=== PATIENT | female | born 1970 | race Two or more races ===

== ENCOUNTER 2024-03-11 14:30 | Outpatient (RCR) | payer MEDICAID, SELFPAY ==
--- NOTE | 2024-02-27 13:10 | PTNOTE_ITS ---
PT OP Initial Eval Patient Information Outpatient Physical Therapy Treatment Date: 02/27/24 Visit Reasons: Left knee fracture Medical Diagnosis: s82.832a Treatment Dx #1: Left Knee Pain Start of Care: 02/27/24 Date of Onset: 12/06/23 Smoking Status Smoking Status: Never smoker Initial Assessment Subjective: Pt is a 53 y/o female reports o left knee fracture when she fell at work. Pt's CT scan confirmed fibula head fracture. Pt was in a long cast for several weeks. Pt still has pain (6/10) with activities. Pt has limitation with walking, standing, chores, self care, balance, and performing work duties. Objective: Left Knee AROM: 0 deg to 130 deg with pain Left Knee MMTs: grossly 3+/5 Left Hip MMTs: grossly 3+/5 SLS: NT Assessment: Pt demonstrate left knee pain and weakness s/p fracture leading to difficulty with ADLs. Pt will benefit from physical therapy to increase mobility, strength, and work on ambulation. Short Term and Custodial Goals 1) Increase left knee AROM WNL in 6 wks to be able to perform squatting activities 2) Increase left knee MMTs grossly to 4/5 in 6 wks to be able to perform stairs and steps 3) Increase left hip MMTs grossly to 4-/5 in 6 wks to be able to performs work duties 4) Increase SLS to 15 sec in 6 wks to be able to perform chores 5) Indep with HEP Treatment Plan 1) Manual Therapy 2) Therapeutic Activities 3) Therapeutic Exercises 4) Modalities (ice, heat) 5) Balance Training 6) Gait Training Frequency and Duration: 2 x wk for 6 wks Certification Dates: 02/27/24 to 05/27/24 Procedure Charges OP PT Eval Mod Complex 30 minutes: Yes
--- NOTE | 2024-03-04 14:00 | PT.ODAYNRPT ---
PT Outpatient Daily Note OP Daily Note Outpatient Physical Therapy Treatment Date: 03/04/24 Visit Reasons: Left knee fracture Subjective: Pt's knee is feeling better. Pt still notice pain with pivoting motions. Objective: Please see flow chart for list of ther ex performed Assessment: tolerate exercises with minimal pain Plan: Continue with PT Length of Time (minutes) of Treatment: 30 Minutes Procedure Charges Therapeutic Exercise 30 minutes: Yes
--- NOTE | 2024-03-11 15:25 | PT.ODAYNRPT ---
PT Outpatient Daily Note OP Daily Note Outpatient Physical Therapy Treatment Date: 03/11/24 Visit Reasons: Left knee fracture Subjective: Pt's knee feels better but notice a weird pain. Pt denies it's PT related Objective: Please see flow chart for list of ther ex performed Assessment: progressing with closed chain exercises with less pain reported Plan: Continue with PT Length of Time (minutes) of Treatment: 30 Minutes Procedure Charges Therapeutic Exercise 30 minutes: Yes
== END 2024-03-11 23:59 | disposition home or self-care (01) ==
LOC: CPTX 14:30
PROVIDERS: PCP Orthopaedic Surgery; Referring Provider Orthopaedic Surgery; Visit Provider Orthopaedic Surgery
DX: M25.562 Pain in left knee (principal); R26.2 Difficulty in walking, not elsewhere classified; R26.89 Other abnormalities of gait and mobility; S82.832D Other fracture of upper and lower end of left fibula, subsequent encounter for closed fracture with routine healing; W19.XXXD Unspecified fall, subsequent encounter
CPT/HCPCS: 97110; 97162

== ENCOUNTER 2024-04-03 09:30 | Outpatient (RCR) | payer MEDICAID, SELFPAY ==
--- NOTE | 2024-03-14 15:01 | PT.ODAYNRPT ---
PT Outpatient Daily Note OP Daily Note Outpatient Physical Therapy Treatment Date: 03/14/24 Visit Reasons: Left knee fracture Subjective: Pt reports L knee is sore and achy today, has been working on her yard and being on her feet more than usual. Objective: Please see flow sheet for ther ex list. Assessment: Regressed interventions to accommodate soreness and pain. Applied MHP at end of session. Plan: Continue with POC. Length of Time (minutes) of Treatment: 30 Minutes Procedure Charges Therapeutic Exercise 30 minutes: Yes
--- NOTE | 2024-03-19 13:51 | PT.ODAYNRPT ---
PT Outpatient Daily Note OP Daily Note Outpatient Physical Therapy Treatment Date: 03/19/24 Visit Reasons: Left knee fracture Subjective: Pt's knee ache. Pt mentioned she may have bursitis. Objective: Please see flow chart for list of ther ex performed Assessment: patient encouraged to continue HEP at home and perfrom ADLs as able due to pain within the knee is normal due to fracture. Pt gave verbal understanding Plan: Continue with PT Length of Time (minutes) of Treatment: 30 Minutes Procedure Charges Therapeutic Exercise 30 minutes: Yes
--- NOTE | 2024-03-26 13:52 | PT.ODAYNRPT ---
PT Outpatient Daily Note OP Daily Note Outpatient Physical Therapy Treatment Date: 03/26/24 Visit Reasons: Left knee fracture Subjective: Pt reports her leg is really sore today and has been having pain. Pt shared that she is taking care of her adult cousin and she has to be lifting carrying and moving her wheelchair. Objective: Please see flow sheet for ther ex list. Assessment: Regressed interventions to accommodate reported pain. Plan: Continue with POC. Length of Time (minutes) of Treatment: 30 Minutes Procedure Charges Therapeutic Exercise 30 minutes: Yes
--- NOTE | 2024-04-01 09:33 | PT.ODAYNRPT ---
PT Outpatient Daily Note OP Daily Note Outpatient Physical Therapy Treatment Date: 04/01/24 Visit Reasons: Left knee fracture Subjective: Pt reports L knee is doing ok, has been wearing a knee support sleeve and feels like it helps. Objective: Please see flow sheet for ther ex list. Assessment: Pt instructed on stretches and encouraged to perform for HEP, pt given a print out. Plan: Continue with POC. Length of Time (minutes) of Treatment: 30 Minutes Procedure Charges Therapeutic Exercise 30 minutes: Yes
--- NOTE | 2024-04-03 11:02 | PT.ODS1RPT ---
PT OP Progress/Discharge Note Date of Service: 04/03/24 Progress Note/DC Note Progress Note/Discharge Note: DC Note Patient Information Visit Reasons: Left knee fracture Medical Diagnosis: s82.832a Treatment Dx #1: Left Knee Pain Service Discharge Date: 04/03/24 Status Subjective: Pt's knee is getting better but on cold days she still feels stiffness. Pt has been able to walk, stand, perform chores, and self care activities with less limitation. At this time Pt feels comfortable being release from care with exercises to continue at home. Objective: Left Knee AROM: all motions are WNL Left Knee MMTs: grossly 4/5 Left Hip MMTs: grossly 4-/5 Assessment: Pt demonstrate functional knee AROM and strength which has allow her to resume ADLs with less limitation. At this time Pt will no longer benefit from physical therapy due to meeting set goals in therapy. Pt was instructed on HEP last session and educated to continue exercises to maintain overall mobility. Pt performed all exercises safely, thank you for your referrals. Plan: D/C home with HEP and follow up with MD VO Procedure Charges Therapeutic Exercise 30 minutes: Yes
== END 2024-04-11 23:59 | disposition home or self-care (01) ==
LOC: CPTX 09:30
PROVIDERS: PCP Orthopaedic Surgery; Referring Provider Orthopaedic Surgery; Visit Provider Orthopaedic Surgery
DX: M25.562 Pain in left knee (principal); R26.2 Difficulty in walking, not elsewhere classified; R53.1 Weakness; S82.832D Other fracture of upper and lower end of left fibula, subsequent encounter for closed fracture with routine healing; W19.XXXD Unspecified fall, subsequent encounter
CPT/HCPCS: 97110